=== PATIENT | male | born 1975 | race Caucasian/White ===

== ENCOUNTER 2019-04-17 11:41 | Emergency (ER) | payer OTHER ==
[2019-04-17] MEDS ORDERED: Tetracaine 0.5% Ophth Soln 15 ML Bottle EYERT ONE (12:40)
[2019-04-17] MEDS ORDERED: Ciprofloxacin 0.3% Ophth Soln 2.5 ML Bottle ONE (12:50)
--- NOTE | 2019-04-17 13:01 | EDM.PDOC ---
ED HPI GENERAL MEDICAL PROBLEM - General Chief Complaint: Eye Problems Stated Complaint: SOMETHING IN RIGHT EYE Time Seen by Provider: 04/17/19 12:35 Source of Information: Reports: Patient History Limitations: Reports: No Limitations Right Eye Pain Score (Numeric/FACES): 2 - Related Data Allergies Allergy/AdvReac Type Severity Reaction Status Date / Time No Known Allergies Allergy Verified 04/17/19 12:11 Home Meds: Home Meds NK [No Known Home Meds] 04/17/19 [History] ED ROS GENERAL - Review of Systems Review Of Systems: ROS reveals no pertinent complaints other than HPI. Course - Vital Signs Last Recorded V/S: Last Vital Signs Temp 36.6 C 04/17/19 12:12 Pulse 68 04/17/19 12:12 Resp 16 04/17/19 12:12 BP 128/84 04/17/19 12:12 Pulse Ox 100 04/17/19 12:12 Departure - Discharge Information Instructions: Ciprofloxacin eye solution, Corneal Abrasion Referrals: PCP,None [Primary Care Provider] - Forms: ED Department Discharge Additional Instructions: Take Cipro eye drops to right eye-2 drops every 4 hours while awake. Take eye drops until symptom free. No rubbing your eye. You will most likely have sensitivity to light. If your eye is not better by Sunday, go see an Eye Doctor.
--- NOTE | 2019-04-17 15:37 | ER ---
REASON FOR EMERGENCY ROOM VISIT: "Something in my right eye." HISTORY: This 43-year-old man was mowing his lawn the day before yesterday. He did not notice anything happening at that time, but the following morning, he awoke with a sensation of irritation in his eye and a foreign body type sensation that persisted through the day and seem to be worse yet again this morning. He has not been using any heavy machinery or near a chili pepper grinder or welding. He does have minimal photophobia, but describes the discomfort as a constant irritation more than anything else. He has no known eye problems. PAST MEDICAL HISTORY: Unremarkable. MEDICATIONS: None. ALLERGIES: NONE TO MEDICATIONS. PHYSICAL EXAMINATION: His visual acuity was obtained by the nurse and documented in the medical record. It is 20/20 bilaterally. On examination of both eyes, one can see that he has a medhat of foreign body that is located in his right eye approximately 1-2 mm on the corneal scleral junction at approximately 1 o'clock. I used magnification to look at this and it was an oval-shaped foreign body that was black in color resembling a tiny seed of some sort. Topical anesthesia was achieved with tetracaine and I was able to easily slide this foreign body off the surface of the cornea with a wooden end of a Q-tip very carefully. It did, under magnification, looked like a small seed. Once this was accomplished, I everted both upper and lower lids and inspected and did not see any evidence of any other foreign bodies. Fluorescein strip was inserted into the eye and after a minute or so removed and the fluorescein-stained surface of the eye was inspected under black light with magnification and indeed he has a small corneal abrasion that is well circumscribed in the same location where the seed was located. No other abrasions were noted. IMPRESSION: Foreign body, right eye with resultant corneal abrasion. PLAN: He was given ciprofloxacin ophthalmic eye drops and instructed to apply 2 drops to the right eye every 4 hours while awake until he is completely symptom free. He understands that this was done more for a prophylactic purposes than as a treatment for any ongoing infection, and that these drops will have the additional benefit of soothing and lubrication. I told him that these corneal abrasions are usually completely gone within 1 to 2 days, but if he should have persistent symptoms after 36 hours or so, he probably has to have a look that again optimally by an catering server or direct selling counselor rather than returning to the emergency department. He understands the rationale behind this and agrees. I told him to continue wearing sunglasses because he will likely experience some residual symptoms throughout the day including photophobia. All questions were answered. He agrees to this plan. TOSHIA /[id number]
== END 2019-04-17 12:57 | disposition home or self-care (01) ==
LOC: LB.ED 11:41
DX: T15.01XA Foreign body in cornea, right eye, initial encounter (principal)
CPT/HCPCS: 65220; 99283; A9270